=== PATIENT | male | born 1945 | race Caucasian/White ===

== ENCOUNTER → 2021-04-16 12:01 | Outpatient (CLI) | payer MEDICARE, OTHER, SELFPAY ==
[2021-04-16 12:39] LABS: International Normalized Ratio 1.1; Prothrombin Time (Protime)PT. 13.1 SECONDS (11.7-14.9)
== END ==
PROVIDERS: PCP Internal Medicine; Referring Provider Internal Medicine Pulmonary Disease; Visit Provider Internal Medicine Pulmonary Disease
DX: I24.8 Other forms of acute ischemic heart disease (principal); R91.1 Solitary pulmonary nodule
CPT/HCPCS: 85610

== ENCOUNTER → 2022-08-13 | Outpatient (CLI) | payer MEDICARE, SELFPAY ==
--- NOTE | 2022-08-13 13:50 | ECHOD_ITS ---
Reason For Study: S/P CABG Procedure This was a 2D Doppler, Color Flow transthoracic echocardiogram. Exam performed in department. Left Ventricle Normal LV size. Left ventricular systolic function is normal. The estimated ejection fraction is 55 %. Stage 1 diastolic dysfunction. No regional wall motion abnormalities noted. Right Ventricle Normal RV size. Normal systolic function. Atria Normal left atrium. Normal right atrium. Mitral Valve There is mild to moderate mitral annular calcification. Tricuspid Valve Normal tricuspid valve. Mild tricuspid valve insufficiency. Pulmonary artery systolic pressure is 34 mmHg. Aortic Valve Normal aortic valve. Pulmonic Valve Normal pulmonic valve. Great Vessels Normal aortic root. The pulmonary artery is normal size. Normal inferior vena cava. Pericardium/Pleural No pericardial effusion. MMode/2D Measurements & Calculations LVIDd: 4.8 cm IVSd: 1.2 cm LAV(MOD-sp4): 44.6 ml LVIDs: 4.0 cm LVPWd: 1.1 cm FS: 16.5 % LVAd ap4: 29.2 cm2 LVAd ap2: 25.8 cm2 SV(MOD-sp4): 46.6 ml LVLd ap4: 7.5 cm LVLd ap2: 8.3 cm EDV(MOD-sp4): 95.3 ml EDV(MOD-sp2): 71.7 ml EDV(sp4-el): 96.6 ml EDV(sp2-el): 68.0 ml LVAs ap4: 19.1 cm2 LVAs ap2: 17.3 cm2 LVLs ap4: 6.5 cm LVLs ap2: 7.3 cm ESV(MOD-sp4): 48.7 ml ESV(MOD-sp2): 38.5 ml ESV(sp4-el): 47.6 ml ESV(sp2-el): 34.8 ml EF(MOD-sp4): 48.9 % EF(MOD-sp2): 46.3 % EF(sp4-el): 50.7 % SV(MOD-sp2): 33.2 ml SV(sp4-el): 48.9 ml LA A4 area: 18.5 cm2 LA dimension(2D): 4.3 cm RA A4 area: 20.9 cm2 Time Measurements MV dec time: 0.31 sec Doppler Measurements & Calculations MV E max frankie: 32.9 cm/sec Lat Peak E' Frankie: 9.0 cm/sec Med Peak E' Frankie: 8.9 cm/sec MV A max frankie: 67.9 cm/sec E/E' lat: 3.7 E/E' med: 3.7 MV E/A: 0.48 MV V2 max: 86.9 cm/sec Ao V2 max: 127.9 cm/sec MV max P.0 mmHg MV dec slope: 153.7 cm/sec2 Ao max P.6 mmHg MV V2 mean: 49.0 cm/sec MV mean P.1 mmHg MV V2 VTI: 29.8 cm LV V1 max: 74.6 cm/sec TR max frankie: 271.8 cm/sec LV V1 max P.2 mmHg TR max P.5 mmHg ECHO/Echo Complete Interpretation Summary Normal LV size. Left ventricular systolic function is normal. The estimated ejection fraction is 55 %. Stage 1 diastolic dysfunction. Pulmonary artery systolic pressure is 34 mmHg. Ordering Physician: Familia Singh Referring Physician: Dereck Garrison MD Performed By: Sharon Lea RCS
== END | disposition home or self-care (01) ==
PROVIDERS: PCP Family Medicine; Visit Provider Internal Medicine Cardiovascular Disease
DX: I25.5 Ischemic cardiomyopathy (principal); Z95.1 Presence of aortocoronary bypass graft
CPT/HCPCS: 93306

== ENCOUNTER → 2023-02-05 | Outpatient (CLI) | payer OTHER, SELFPAY ==
--- NOTE | 2023-02-05 12:34 | ECHOD_ITS ---
Reason For Study: SOB Procedure This was a 2D Doppler, Color Flow transthoracic echocardiogram. Exam performed in department. Left Ventricle Normal LV size. Left ventricular systolic function is normal. The estimated ejection fraction is 55 %. Stage 1 diastolic dysfunction. No regional wall motion abnormalities noted. Right Ventricle Normal RV size. Normal systolic function. Atria Normal left atrium. Normal right atrium. Mitral Valve Normal mitral valve. Tricuspid Valve Normal tricuspid valve. Mild (1+) tricuspid valve insufficiency. Pulmonary artery systolic pressure is 35 mmHg. Aortic Valve The aortic valve is not well visualized. Pulmonic Valve Normal pulmonic valve. Great Vessels Normal aortic root. The pulmonary artery is normal size. Normal inferior vena cava. Pericardium/Pleural No pericardial effusion. MMode/2D Measurements & Calculations LVIDd: 4.2 cm IVSd: 1.0 cm Ao root diam: 3.2 cm LVIDs: 3.3 cm LVPWd: 1.4 cm RVDd: 3.7 cm FS: 21.0 % LAV(MOD-bp): 48.4 ml LVAd ap4: 26.2 cm2 SV(MOD-sp4): 37.1 ml LAV(MOD-bp) Indexed: 24.8 ml/m2 LVLd ap4: 7.2 cm LAV(MOD-sp2): 51.6 ml EDV(MOD-sp4): 78.7 ml LAV(MOD-sp4): 38.2 ml EDV(sp4-el): 81.1 ml LVAs ap4: 17.8 cm2 LVLs ap4: 6.7 cm ESV(MOD-sp4): 41.5 ml ESV(sp4-el): 40.1 ml EF(MOD-sp4): 47.2 % EF(sp4-el): 50.5 % SV(sp4-el): 40.9 ml LA A4 area: 14.9 cm2 LA dimension(2D): 3.7 cm RA A4 area: 18.9 cm2 TAPSE: 2.5 cm Time Measurements MV dec time: 0.42 sec Doppler Measurements & Calculations MV E max frankie: 55.6 cm/sec Lat Peak E' Frankie: 10.3 cm/sec Med Peak E' Frankie: 6.1 cm/sec MV A max frankie: 80.9 cm/sec E/E' lat: 5.4 E/E' med: 9.1 MV E/A: 0.69 MV V2 max: 99.4 cm/sec Ao V2 max: 113.9 cm/sec MV max P.0 mmHg MV dec slope: 150.1 cm/sec2 Ao max P.2 mmHg MV V2 mean: 55.3 cm/sec Ao V2 mean: 78.6 cm/sec MV mean P.4 mmHg Ao mean P.8 mmHg MV V2 VTI: 37.4 cm Ao V2 VTI: 29.8 cm AV (velocity ratio): 0.79 LV V1 max: 94.7 cm/sec TR max frankie: 283.1 cm/sec LV V1 max P.6 mmHg TR max P.1 mmHg LV V1 mean P.9 mmHg LV V1 mean: 64.7 cm/sec LV V1 VTI: 23.4 cm ECHO/Echo Complete Interpretation Summary Normal LV size. Left ventricular systolic function is normal. The estimated ejection fraction is 55 %. Stage 1 diastolic dysfunction. Pulmonary artery systolic pressure is 35 mmHg. Ordering Physician: Zofia Thompson Referring Physician: Zofia Thompson Performed By: Sharon Lea RCS
== END | disposition home or self-care (01) ==
PROVIDERS: PCP Family Medicine; Referring Provider Internal Medicine; Visit Provider Internal Medicine
DX: R06.02 Shortness of breath (principal)
CPT/HCPCS: 93306

== ENCOUNTER → 2023-09-04 | Outpatient (CLI) | payer MEDICARE, SELFPAY ==
[2023-09-04 12:34] LABS: Erythrocyte Sedimentation Rate 13 mm/hr (0-20)
[2023-09-04 12:37] LABS: Absolute Lymphocyte Count 0.81 X10^3/uL (0.83-4.51); Absolute Neutrophil Count 6.6 X10^3/uL (2.0-7.7); Basophil# 0.07 X10^3/uL; Basophil% 0.8 % (0-1); Eosinophil# 0.24 X10^3/uL; Eosinophils% 2.9 % (0-5); Hematocrit 42.1 % (40-54); Hemoglobin 13.2 g/dL (13.0-16.5); Lymphocyte # 0.81 X10^3/ul (0.83-4.51); Lymphocyte % 9.6 % (19-41); Mean Corp Hgb Conc 31.4 g/dL (32-36); Mean Corpuscular Hgb 28.8 pg (27.0-32.0); Mean Corpuscular Volume 91.7 fL (80-94); Mean Platelet Vol. 9.1 fl (6.2-12.0); Monocyte% 7.1 % (0-10); NRBC Flagged by Analyzer 0 % (0-5); Neutrophil % 78.4 % (47-70); Platelet Count 339 K/mm3 (150-450); RBC Distribution Width CV 14.9 % (11.6-14.6); RBC Distribution Width SD 50.5 fl (35.1-43.9); Red Blood Count 4.59 M/mm3 (4.6-6.2); White Blood Count 8.4 K/mm3 (4.4-11.0)
[2023-09-04 12:47] LABS: ALB/GLOB Ratio 0.8 RATIO (0.9-2.4); AST(SGOT) 9 U/L (15-37); Alanine Aminotransfer ALT/SGPT 17 U/L (16-61); Albumin, Serum 3.5 g/dL (3.2-5.0); Alkaline Phosphatase 82 U/L (45-117); Anion Gap 6 (5-15); BUN 16 mg/dL (7-18); BUN/Creat Ratio 10.9 RATIO (10-20); Calcium,Total 9.4 mg/dL (8.5-10.1); Chloride 102 mmol/L (98-107); Creatinine, Serum 1.47 mg/dL (0.70-1.30); EST Glomerular Filtration Rate 50 mL/min (>60); Est Glom Filt Rate - Afr Amer 60 mL/min (>60); Globulin 4.4 g/dL (2.2-4.2); Glucose 95 mg/dL (74-106); Potassium 4.6 mmol/L (3.5-5.1); Protein, Total 7.9 g/dL (6.4-8.2); Rheumatoid Factor < 10.0 IU/mL (<15); Sodium Level 137 mmol/L (136-145)
[2023-09-04 14:31] LABS: Hepatitis B Surface Antibody Non-Reactive; Hepatitis C Antibody Non-Reactive (Nonreactive)
[2023-09-05 15:08] LABS: CCP IgG Antibodies 1 units (0-19)
[2023-09-07 15:08] LABS: ANTINUCLEAR ANTIBODIES DIRECT Positive (Negative)
== END | disposition home or self-care (01) ==
PROVIDERS: PCP Family Medicine; Referring Provider Internal Medicine Rheumatology; Visit Provider Internal Medicine Rheumatology
DX: M06.4 Inflammatory polyarthropathy (principal); M19.041 Primary osteoarthritis, right hand
CPT/HCPCS: 36415; 80053; 85025; 85652; 86038; 86140; 86200; 86431; 86706; 86803

== ENCOUNTER → 2023-12-21 | Outpatient (CLI) | payer MEDICARE, SELFPAY ==
[2023-12-21 17:31] LABS: Absolute Lymphocyte Count 0.83 X10^3/uL (0.83-4.51); Absolute Neutrophil Count 5.1 X10^3/uL (2.0-7.7); Basophil# 0.07 X10^3/uL; Eosinophils% 4.4 % (0-5); Hematocrit 39.9 % (40-54); Hemoglobin 12.5 g/dL (13.0-16.5); Lymphocyte # 0.83 X10^3/ul (0.83-4.51); Lymphocyte % 12.2 % (19-41); Mean Corp Hgb Conc 31.3 g/dL (32-36); Mean Corpuscular Hgb 28.5 pg (27.0-32.0); Mean Corpuscular Volume 90.9 fL (80-94); Mean Platelet Vol. 8.9 fl (6.2-12.0); Monocyte# 0.46 X10^3/uL; Monocyte% 6.8 % (0-10); NRBC Flagged by Analyzer 0 % (0-5); Neutrophil # 5.12 X10^3/uL (2.7-7.7); Neutrophil % 75.3 % (47-70); Platelet Count 284 K/mm3 (150-450); RBC Distribution Width CV 14.4 % (11.6-14.6); Red Blood Count 4.39 M/mm3 (4.6-6.2); White Blood Count 6.8 K/mm3 (4.4-11.0)
[2023-12-21 18:15] LABS: ALB/GLOB Ratio 0.9 RATIO (0.9-2.4); AST(SGOT) 11 U/L (15-37); Alanine Aminotransfer ALT/SGPT 13 U/L (16-61); Albumin, Serum 3.6 g/dL (3.2-5.0); Alkaline Phosphatase 81 U/L (45-117); Anion Gap 7 (5-15); BUN 18 mg/dL (7-18); BUN/Creat Ratio 12.7 RATIO (10-20); Calcium,Total 9.2 mg/dL (8.5-10.1); Chloride 104 mmol/L (98-107); Creatinine, Serum 1.42 mg/dL (0.70-1.30); EST Glomerular Filtration Rate 52 mL/min (>60); Est Glom Filt Rate - Afr Amer 62 mL/min (>60); Globulin 4.1 g/dL (2.2-4.2); Glucose 97 mg/dL (74-106); Potassium 4.1 mmol/L (3.5-5.1); Protein, Total 7.7 g/dL (6.4-8.2); Sodium Level 136 mmol/L (136-145)
== END | disposition home or self-care (01) ==
LOC: MTLAB 14:08
PROVIDERS: PCP Family Medicine; Referring Provider Internal Medicine Rheumatology; Visit Provider Internal Medicine Rheumatology
DX: M06.4 Inflammatory polyarthropathy (principal); Z79.899 Other long term (current) drug therapy; M19.041 Primary osteoarthritis, right hand
CPT/HCPCS: 36415; 80053; 85025

== ENCOUNTER → 2024-03-08 | Outpatient (CLI) | payer MEDICARE, SELFPAY | END | disposition home or self-care (01) | LOC: MTLAB 11:01 | PROVIDERS: PCP Family Medicine; Referring Provider Internal Medicine Rheumatology; Visit Provider Internal Medicine Rheumatology | DX: M06.4 Inflammatory polyarthropathy (principal); Z79.899 Other long term (current) drug therapy; M19.041 Primary osteoarthritis, right hand | CPT/HCPCS: 36415; 80053 ==

== ENCOUNTER → 2024-03-16 | Outpatient (CLI) | payer MEDICARE, SELFPAY ==
[2024-03-16 12:16] LABS: Absolute Lymphocyte Count 0.52 X10^3/uL (0.83-4.51); Absolute Neutrophil Count 5.5 X10^3/uL (2.0-7.7); Basophil# 0.07 X10^3/uL; Eosinophil# 0.42 X10^3/uL; Hematocrit 38.4 % (40-54); Hemoglobin 11.9 g/dL (13.0-16.5); Lymphocyte # 0.52 X10^3/ul (0.83-4.51); Lymphocyte % 7.4 % (19-41); Mean Corpuscular Hgb 28.3 pg (27.0-32.0); Mean Corpuscular Volume 91.2 fL (80-94); Mean Platelet Vol. 9.5 fl (6.2-12.0); Monocyte# 0.48 X10^3/uL; Monocyte% 6.9 % (0-10); NRBC Flagged by Analyzer 0 % (0-5); Neutrophil # 5.47 X10^3/uL (2.7-7.7); Neutrophil % 78.4 % (47-70); POSITIVE DIFFERENTIAL YES; Platelet Count 258 K/mm3 (150-450); RBC Distribution Width CV 14.6 % (11.6-14.6); Red Blood Count 4.21 M/mm3 (4.6-6.2)
[2024-03-16 12:54] LABS: ALB/GLOB Ratio 0.8 RATIO (0.9-2.4); AST(SGOT) 11 U/L (15-37); Alanine Aminotransfer ALT/SGPT 14 U/L (16-61); Albumin, Serum 3.3 g/dL (3.2-5.0); Alkaline Phosphatase 84 U/L (45-117); Anion Gap 6 (5-15); BUN 19 mg/dL (7-18); BUN/Creat Ratio 13.9 RATIO (10-20); Calcium,Total 9.3 mg/dL (8.5-10.1); Chloride 106 mmol/L (98-107); Creatinine, Serum 1.37 mg/dL (0.70-1.30); EST Glomerular Filtration Rate 54 mL/min (>60); Est Glom Filt Rate - Afr Amer 65 mL/min (>60); Glucose 94 mg/dL (74-106); Potassium 4.6 mmol/L (3.5-5.1); Protein, Total 7.3 g/dL (6.4-8.2); Sodium Level 137 mmol/L (136-145)
== END | disposition home or self-care (01) ==
LOC: MTLAB 10:05
PROVIDERS: PCP Family Medicine; Referring Provider Internal Medicine Rheumatology; Visit Provider Internal Medicine Rheumatology
DX: M06.4 Inflammatory polyarthropathy (principal); Z79.899 Other long term (current) drug therapy; M19.041 Primary osteoarthritis, right hand
CPT/HCPCS: 36415; 80053; 85025

== ENCOUNTER 2024-04-02 01:26 | Observation (INO) | payer MEDICARE, SELFPAY ==
--- NOTE | 2024-04-02 01:27 | EKG12_ITS ---
Test Reason : AM EKG Blood Pressure : / mmHG Vent. Rate : 062 BPM Atrial Rate : 062 BPM P-R Int : 174 ms QRS Dur : 102 ms QT Int : 450 ms P-R-T Axes : 004 024 048 degrees QTc Int : 456 ms Normal sinus rhythm Low voltage QRS Borderline ECG When compared with ECG of 26-MAR-2012 15:46, Aberrant conduction is no longer Present Confirmed by Chris Schneider ([id number]), publishing editor PATRICK RICHARDSON ([id number]) on 04/04/2024 1:27:48 PM Referred By: GURVINDER Confirmed By:Chris Schneider
--- NOTE | 2024-04-02 04:14 | HP.PCM.HOS_ITS ---
HPI - General General Date of Admission: 04/02/24 Date of Service: 04/02/24 Chief Complaint: Chest pain. HPI Narrative The patient is a 78 y/o M w/ PMHx: Chronic COPD, HTN, HLD, CAD s/p PCI and CABG, Ischemic Cardiomyopathy, Hx RUL long cancer status post lobectomy, MOHAN, CKD stage III unclear subtype per GFR trending, Former tobacco use, Chronic anemia, Inflammatory polyarthropathy, Hx significant diverticular disease status post partial colectomy with transient diverting ostomy who presents to the [facility] as a direct admission from outside facility [facility] ED on 04/02/24 with history of onset of chest discomfort bilaterally with some reproducibility with palpation especially on the right side which he notes is more chronic status post previous thoracotomy as well as some increased discomfort with deep inspiratory effort however it was ongoing and he was unable to get comfortable prompting eventual outside facility ED evaluation. Patient denies any increase above baseline dyspnea, diaphoresis, nausea or emesis with this onset. Workup at the outside ED included VS: BP 137/66, 97% on RA, RR 13, HR 60, T 98.3, EKG w/ SR without acute evidence of ischemia, CTPA with no evidence of pulmonary embolism, dissection or aneurysm, area of small loculated fluid in the right lower thorax similar prior status post thoracotomy with right upper lobe lobectomy, high-sensitivity troponin 6 with repeat delta 4.8, D-dimer 847, CMP with sodium 138, potassium 4.4, BUN/creatinine 24/1.53, GFR 44, glucose 96, hepatic profile unremarkable, CBC with WBC 6.8, hemoglobin 11.6, MCV 89, platelet 248 without marked shift. In the ED patient was ministered Toradol, Decadron, tramadol for treatment of musculoskeletal pain in addition to aspirin 162 mg p.o. x 1. The ED physician did reach out to cardiology Dr. Bonilla prior to discussions with hospitalist physician and cardiology accepted the patient for transfer. Upon arrival at [facility] he notes his discomfort is significantly improved and are completely resolved since the ED medications administered outside at [facility]. [facility] Medical History Allergic rhinitis Anxiety and depression History of diverticulitis CKD (chronic kidney disease), stage III Chronic anemia Former tobacco use Inflammatory polyarthropathy GERD (gastroesophageal reflux disease) COPD (chronic obstructive pulmonary disease) Malignant neoplasm of right upper lobe of lung (08/2020) Ischemic cardiomyopathy Obesity Obstructive sleep apnea Atherosclerotic heart disease of [place] coronary artery without angina pectoris Essential (primary) hypertension HLD (hyperlipidemia) Home Medications ?Medication ?Instructions ?Recorded ?Last Taken ?Type aspirin 81 mg tablet,delayed 81 mg PO QDAY 01/08/18 Unknown History release (Adult Low Dose Aspirin) tamsulosin 0.4 mg capsule 0.4 mg PO QDAY 01/08/18 Unknown History rosuvastatin 10 mg tablet 5 mg PO DAILY 08/09/19 Unknown History cholecalciferol (vitamin D3) 50 50 mcg PO DAILY 08/08/21 Unknown History mcg (2,000 unit) capsule sertraline 25 mg tablet 25 mg PO DAILY 08/08/21 Unknown History glucosamine sulfate 1,000 mg 1,000 mg PO DAILY 08/05/22 Unknown History capsule loratadine 10 mg tablet 10 mg PO DAILY 08/05/22 Unknown History turmeric root extract 500 mg tablet 500 mg PO DAILY 08/05/22 Unknown History albuterol sulfate 90 mcg/actuation 1 puff inhalation ONCE PRN 08/05/23 Unknown History aerosol inhaler cyanocobalamin (vitamin B-12) 1,000 mcg PO DAILY 08/05/23 Unknown History 1,000 mcg tablet furosemide 20 mg tablet 20 mg PO DAILY 08/05/23 Unknown History lisinopril 10 mg tablet 10 mg PO DAILY 08/05/23 Unknown History omeprazole 20 mg capsule,delayed 20 mg PO DAILY 08/05/23 Unknown History release tiotropium 2.5 mcg-olodaterol 2.5 2 puff inhalation DAILY 08/05/23 Unknown History mcg/actuation mist for inhalation (Stiolto Respimat) hydroxychloroquine 200 mg tablet 200 mg PO BID 04/02/24 Unknown History Allergy/AdvReac Type Severity Reaction Status Date / Time No Known Allergies Allergy Verified 08/05/23 10:24 Family History Mother Hypertension Father Heart disease Mother Hypertension Surgical History History of carpal tunnel release History of thoracotomy (09/2020) History of colectomy History of coronary artery stent placement (2002) History of left heart catheterization (12/2015) H/O coronary artery bypass surgery (12/21/06) Colostomy in place Social History household members: spouse Smoking Status: Former smoker how long ago did patient quit smokin alcohol intake: never substance use type: does not use caffeine: Yes Type: coffee Number of servings: 3 ROS ROS Narrative Admission Review of Systems: CONSTITUTIONAL: No weight loss, fever, chills, + weakness or fatigue. HEENT: Eyes: No visual loss, blurred vision, double vision or yellow sclerae. Ears, Nose, Throat: No hearing loss, sneezing, congestion, runny nose or sore throat. SKIN: No rash or itching, lesions, wounds. CARDIOVASCULAR: + Chest pain, component of reproducibility. No palpitations, edema, orthopnea, syncopal events. RESPIRATORY: + Unchanged chronic dyspnea worse with exertion/increased activity. No marked cough or sputum, wheezing, hemoptysis. GASTROINTESTINAL: No anorexia, nausea, vomiting or diarrhea, abdominal pain, melena, BRBPR. GENITOURINARY: + Chronic urinary frequency with BPH without obstructive process. No dysuria, urgency or retention. NEUROLOGICAL: No headache, dizziness, syncope, paralysis, ataxia, numbness or tingling in the extremities, focal weakness, change in bowel or bladder control, seizure. MUSCULOSKELETAL: + muscle, back pain, joint pain or stiffness. HEMATOLOGIC: + Chronic anemia, easy bleeding/bruising. LYMPHATICS: No enlarged nodes. No history of splenectomy. PSYCHIATRIC: + History of anxiety and depression. ENDOCRINOLOGIC: No reports of sweating, cold or heat intolerance. No polyuria or polydipsia. ALLERGIES: + History of allergic rhinitis. Physical Exam Narrative Physical Examination: General: Awake, alert, oriented x 3 and cooperative, seated upright in the ED bed, mildly fatigued, notes feeling well and chest discomfort is completely resolved. Skin: Normal color, normal turgor, no icterus, no cyanosis except occasional stage ecchymoses. HEENT: AT/NC, EOMI, PERRLA, MMM, no carotid bruits or JVD noted. Lungs: Mildly diminished, more prominent posteriorly especially right upper status post lobectomy, appropriate effort, no rales, ronchi or wheezing. Heart: Regular rate and rhythm; no gallop, rub audible, no reproducible pain with palpation of the chest but he notes it is completely resolved following ED outpatient steroids, tramadol and IV Toradol. Abdomen: Soft, NTTP, ND, mildly hyperactive BS, no appreciated HSM. Extremities: No cyanosis, no clubbing, very mild ankle not markedly pitting edema present. Neurological: Patient awake, alert, oriented as noted, cognitive function intact; pupils equally reactive to light and accommodation, cranial nerves grossly normal, moving all 4 extremities, no focal deficits, strength preserved. Psychiatric: Affect appears fatigued otherwise normal, no acute evidence of depressive or anxiety feelings but does have underlying history. Assessment & Plan Assessment/Plan (1) Chest pain: PLAN: Plan The patient is a 78 y/o M w/ PMHx: Chronic COPD, HTN, HLD, CAD s/p PCI and CABG, Ischemic Cardiomyopathy, Hx RUL long cancer status post lobectomy, MOHAN, CKD stage III unclear subtype per GFR trending, Former tobacco use, Chronic anemia, Inflammatory polyarthropathy, Hx significant diverticular disease status post pa rtial colectomy with transient diverting ostomy who presents to the [facility] as a direct admission from outside facility [facility] ED on 04/02/24 with history of onset of chest discomfort bilaterally with some reproducibility with palpation especially on the right side which he notes is more chronic status post previous thoracotomy as well as some increased discomfort with deep inspiratory effort however it was ongoing and he was unable to get comfortable prompting eventual outside facility ED evaluation. #1. Chest Pain with underlying CAD s/p prior PCI although presentation suspicious for underlying musculoskeletal etiology: EKG in ED at outside facility with sinus rhythm with no acute evidence of ischemia reported, CTPA with no acute findings aside from chronic small loculated fluid section in the right lower thorax status post previous thoracotomy and lobectomy, initial trop 6 with repeat delta 4.8. Will admit to PCU, place on a monitored bed to assure no acute myocardial infarction with serial cardiac enzymes and EKGs. If repeat serial cardiac enzymes remain unremarkable will pursue AM cardiac stress testing. Magnesium level requested. FLP in AM. ASA, NG, morphine. #2. CAD with ischemic cardiomyopathy: Status post PCI CONRAD proximal RCA 2002 as well as CABG [place] to LAD, SVG to ramus intermedius, SVG to diagonal vessel 2006, previously EF 20 1640% and most recently prior to this 08/13/22 EF 55%, will continue aspirin, statin, lisinopril, not on beta-fabiola therapy but previously had been metoprolol however this was discontinued per most recent cardiology note 08/05/23. The reports this was discontinued secondary to hypotension. #3. 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 #4. Chronic normocytic anemia: ED hemoglobin from outside facility 11.6, MCV 89, previous baseline more recently 03/16/24 hemoglobin 11.9 and prior to this 12/21/23 hemoglobin 12.5, continue to closely trend. #5. Chronic Kidney Disease Stage III, unclear subtype per GFR trending: Outside ED BUN/Cr 44/1.53, GFR 44, baseline renal function 1.3-1.4, repeat BMP in AM. #6. Former tobacco use: Smokes approximately 30 years quitting in 1995, encourage continued tobacco cessation. #7. Hypertension: Continue home regimen including lisinopril, Lasix with hold parameters, PRN hydralazine. #8. Allergic rhinitis: We will continue patient home loratadine regimen. #9. BPH without obstruction: We will continue patient on Flomax regimen. #10. 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 #11. Chronic COPD: Will temporally hold home inhalers and transition the interim to ATC budesonide therapy, PRN albuterol, HOB, IS parameters. #12. Anxiety and depression: We will continue patient home sertraline regimen. #13. Inflammatory polyarthropathy: Following with rheumatology Dr. Velázquez, recently started on hydroxychloroquine regimen for ~5 months, will encourage continued outpatient follow-up as previously arranged. #14. GERD: We will continue patient on PPI. #15. MOHAN: Does not use any type of PAP therapy. #16. DVT prophylaxis: Lovenox. #17. CODE status: Patient HCPABRIL is his and his son his secondary and living will is currently in place. Discussed CODE status at length including difference between FULL code, DNR-CCA and DNR-CC status. Following discussions about the differences in these status, requested Full Code status. Advanced Care Planning Face to Face Time: 16 minutes. Charges/Coding Visit Charges Inpatient E&M: 87802 Init Hosp L3 Procedures Hospitalists Procedures: 46905 Advncd Care Plan 30 Min
[2024-04-02 04:36] VITALS: BMI 30.7
[2024-04-02 04:40] VITALS: BP 136/72; PULSE 60; RESP 18; TEMP 36.4; O2SAT 99
[2024-04-02 04:45] LABS: Absolute Lymphocyte Count 0.25 X10^3/uL (0.83-4.51); Absolute Neutrophil Count 4.1 X10^3/uL (2.0-7.7); Basophil# 0.01 X10^3/uL; Basophil% 0.2 % (0-1); Eosinophil# 0.02 X10^3/uL; Eosinophils% 0.5 % (0-5); Hemoglobin 11.6 g/dL (13.0-16.5); Lymphocyte # 0.25 X10^3/ul (0.83-4.51); Lymphocyte % 5.6 % (19-41); Mean Corp Hgb Conc 32.2 g/dL (32-36); Mean Corpuscular Hgb 28.9 pg (27.0-32.0); Mean Corpuscular Volume 89.8 fL (80-94); Monocyte# 0.06 X10^3/uL; Monocyte% 1.4 % (0-10); NRBC Flagged by Analyzer 0 % (0-5); Neutrophil # 4.09 X10^3/uL (2.7-7.7); Neutrophil % 92.1 % (47-70); POSITIVE DIFFERENTIAL YES; Platelet Count 232 K/mm3 (150-450); RBC Distribution Width CV 14.6 % (11.6-14.6); RBC Distribution Width SD 47.9 fl (35.1-43.9); Red Blood Count 4.01 M/mm3 (4.6-6.2); White Blood Count 4.4 K/mm3 (4.4-11.0)
--- NOTE | 2024-04-02 05:00 | NURSING ---
emergency documentation in effect since 04/02/24, @[id number]
[2024-04-02 05:06] LABS: ALB/GLOB Ratio 0.8 RATIO (0.9-2.4); AST(SGOT) 11 U/L (15-37); Alanine Aminotransfer ALT/SGPT 13 U/L (16-61); Albumin, Serum 3.3 g/dL (3.2-5.0); Alkaline Phosphatase 75 U/L (45-117); Anion Gap 7 (5-15); BUN 30 mg/dL (7-18); BUN/Creat Ratio 18.2 RATIO (10-20); Calcium,Total 9.2 mg/dL (8.5-10.1); Chloride 104 mmol/L (98-107); Creatinine, Serum 1.65 mg/dL (0.70-1.30); EST Glomerular Filtration Rate 43 mL/min (>60); Est Glom Filt Rate - Afr Amer 52 mL/min (>60); Estimated Creatinine Clearance 40.52 ml/min; Globulin 3.9 g/dL (2.2-4.2); Glucose 126 mg/dL (74-106); Magnesium 2.3 mg/dL (1.6-2.6); Protein, Total 7.2 g/dL (6.4-8.2); Sodium Level 134 mmol/L (136-145)
[2024-04-02 05:07] LABS: Troponin-I HS 5 pg/mL (3.0-78.0)
[2024-04-02 06:30] VITALS: BP 139/72; PULSE 57; RESP 18; TEMP 36.5; O2SAT 100
[2024-04-02] MEDS: Lisinopril 10 MG Tablet PO (06:33)
[2024-04-02] MEDS: Aspirin E.C. 81 MG Tablet PO (06:33)
[2024-04-02 06:57] LABS: Troponin-I HS 6 pg/mL (3.0-78.0)
[2024-04-02 10:51] LABS: Troponin-I HS 8 pg/mL (3.0-78.0)
--- NOTE | 2024-04-02 12:18 | CASEMGMT ---
Met with pt to complete BROWN form. BROWN form explained to pt at this time who voiced understanding and signed form. Original form placed in pt?s chart and copy provided to the pt. Pt states that he lives with his and that he is independent. Pt states that he also has family that lives next door. Pt states that he feels safe discharging home once he is medically ready and denies further needs such as HHC, OP Tx, or DME. Kandy Mahoney RN CM
--- NOTE | 2024-04-02 12:21 | STRESSREP ---
Stress Test Report Date: 04/02/2024 Procedure: Pharmacologic stress nuclear imaging study Indications: Chest pain Consent: Per the patient Procedure: The patient underwent pharmacologic (Regadenoson) evaluation with a peak heart rate of 80 beats per minute (55%predicted maximal heart rate) and a peak blood pressure of 140/70 mmHg. The baseline ECG demonstrated normal sinus rhythm. EKG during lexiscan infusion revealed no significant ischemic changes. EKG post infusion revealed no significant ischemic changes [There were no cardiac dysrhythmias pretest, during pharmacologic infusion, or recovery]. [There was no complaint of chest discomfort during pharmacologic infusion or recovery]. The examination was discontinued secondary to completion of protocol. Impression: 1. Lexiscan stress test test is negative for Lexiscan infusion induced EKG changes of ischemia. 2. Lexiscan stress test test is negative for Lexiscan infusion induced chest pain. 3. Results of the nuclear portion of the test is as below Myocardial perfusion imaging study: Technique: The patient was injected with 12 millicuries of technetium 99m Cardiolite and subsequently rest SPECT Cardiolite nuclear imaging was obtained in the horizontal long, vertical long, and short axis views. The patient underwent pharmacologic [Regadenoson 0.4mg] evaluation. Please see above for details. The patient was injected with 36 millicuries of technetium 99m Cardiolite and subsequently stress SPECT Cardiolite nuclear imaging was obtained in the horizontal long, vertical long, and short axis views. A gated Cardiolite study at peak stress was obtained. Interpretation: Rest and stress SPECT Cardiolite nuclear imaging status post realignment, normalization, and attenuation correction demonstrate no definite evidence of significant ischemia or infarction. There is mild fixed apical defect which is likely apical thinning, a normal variant. Gated images reveal no significant regional wall motion abnormalities. The reported LVEF is 61%. Impression: 1. There is no evidence of significant ischemia or infarction. 2. Estimated ejection fraction is 61%. This note was generated with Librettoation software. It may contain incorrect words, spelling, and punctuation that were not noted in checking the note before signing.
[2024-04-02 12:35] VITALS: BP 139/69; PULSE 64; RESP 16; TEMP 36.4; O2SAT 100
[2024-04-02] MEDS: Loratadine 10 MG Tablet PO (12:40)
[2024-04-02] MEDS: Furosemide 20 MG Tablet PO (12:40)
[2024-04-02] MEDS: Pantoprazole Sodium 20 MG Tablet PO (12:40)
[2024-04-02] MEDS: Tamsulosin HCl 0.4 MG Capsule PO (12:40)
[2024-04-02] MEDS: Hydroxychloroquine 200 MG Tablet PO (12:40)
[2024-04-02] MEDS: Sertraline 50 MG Tablet 25 MG PO (12:40)
--- NOTE | 2024-04-02 14:13 | DS.PCM_ITS ---
Providers Date of Admission: 04/02/24 Date of Discharge: 04/02/24 Primary Care Physician: Dr. Dereck Garrison MD Reason For Visit: CHEST PAIN Diagnosis Discharge Diagnosis (1) Chest pain: Status: Acute Code(s): R07.9 - Chest pain, unspecified Medications at Discharge Home Medications aspirin 81 mg tablet,delayed release (Adult Low Dose Aspirin) 81 mg PO QDAY 01/08/18 tamsulosin 0.4 mg capsule 0.4 mg PO QDAY 01/08/18 rosuvastatin 10 mg tablet 5 mg PO DAILY 08/09/19 cholecalciferol (vitamin D3) 50 mcg (2,000 unit) capsule 50 mcg PO DAILY 08/08/21 sertraline 25 mg tablet 25 mg PO DAILY 08/08/21 glucosamine sulfate 1,000 mg capsule 500 mg PO DAILY 08/05/22 loratadine 10 mg tablet 10 mg PO QHS 08/05/22 turmeric root extract 500 mg tablet 500 mg PO DAILY 08/05/22 albuterol sulfate 90 mcg/actuation aerosol inhaler 1 puff inhalation ONCE PRN shortness of breath or wheezing 08/05/23 cyanocobalamin (vitamin B-12) 1,000 mcg tablet 1,000 mcg PO DAILY 08/05/23 furosemide 20 mg tablet 20 mg PO DAILY 08/05/23 lisinopril 10 mg tablet 10 mg PO DAILY 08/05/23 omeprazole 20 mg capsule,delayed release 20 mg PO DAILY 08/05/23 tiotropium 2.5 mcg-olodaterol 2.5 mcg/actuation mist for inhalation (Stiolto Respimat) 2 puff inhalation DAILY 08/05/23 hydroxychloroquine 200 mg tablet 200 mg PO DAILY 04/02/24 nitroglycerin 0.4 mg sublingual tablet 0.4 mg sublingual Q5M PRN chest pain #30 tabs 04/02/24 Hospital Course Operations None Procedures Stress test Summary of Care Provided Minutes Spent on Discharge: 55 Hospital Course: Patient is a 78-year-old male with an extensive past medical history as outlined who was admitted as a direct transfer from [facility] ED with a complaint of chest discomfort. He has started while he was at a high school football game and the night he went to the outside hospital ED. He went to the ED where EKG showed no acute ST changes. CT of the chest showed no evidence of PE or dissection or aneurysm. There was concern that his pain may be musculoskeletal as it was reproducible. He was transferred to [facility] for evaluation with stress test. His chest pain had significantly improved and virtually resolved by the time he came into the ED. He was admitted and managed for chest pain to rule out ACS. He had a stress test done on 04/02/2024 which was negative for evidence of ischemia. Chest pain did not recur during this admission. He remained stable and was discharged on 04/02/2024. He was discharged with a prescription for sublingual nitroglycerin 0.4 mg as needed for chest pain to see if this would help with his chest pain if it did recur. Patient seen and examined prior to discharge. He felt well and had no complaints. He had an uneventful night. Review of systems otherwise negative. Labs and vitals reviewed. Home medication reviewed and reconciled. Physical Exam Const alert, oriented x3 and no apparent distress General Appearance: cooperative and comfortable Orientation / Consciousness: awake Exam Limitations: no limitations HEENT normocephalic, head/scalp atraumatic, hearing grossly normal bilaterally, moist oral mucous membranes and oropharynx normal Mouth: oral and palatal mucosa normal Eyes PERRL, EOMs intact bilaterally and conjunctivae normal Neck no lymphadenopathy, supple and no JVD Resp normal respiratory effort, no retractions, no use of accessory muscles and clear to auscultation bilaterally Cardio regular rate, regular rhythm, S1 normal heart sound, S2 normal heart sound and no murmurs GI normal to inspection, nondistended, normoactive bowel sounds, soft to palpation, non-tender and non-distended Extremity normal to inspection, full ROM and no clubbing, cyanosis or edema Skin no rashes or lesions noted and no wounds Neuro oriented x3, CN's II-XII intact bilaterally, moves all extremities, no focal motor deficits and no sensory deficits noted Sensorium / Orientation: awake and alert Motor Exam: strength 5/5 throughout Psych affect normal Weight / BMI Weight Weight: 195 lb 15.855 oz Body Mass Index (BMI) 30.7 ABG / Lab / Microbiology Data 04/02/24 04:35 04/02/24 04:35 Laboratory: Laboratory Results - last 24 hr 04/02/24 04:35: WBC 4.4, RBC 4.01 L, Hgb 11.6 L, Hct 36.0 L, MCV 89.8, MCH 28.9, MCHC 32.2, RDW Std Deviation 47.9 H, RDW Coeff of Erich 14.6, Plt Count 232, MPV 9.0, Immature Gran % (Auto) 0.200, Neut % (Auto) 92.1 H, Lymph % (Auto) 5.6 L, [place] % (Auto) 1.4, Eos % (Auto) 0.5, Baso % (Auto) 0.2, Absolute Neuts (auto) 4.1, Absolute Lymphs (auto) 0.25 L, Nucleated RBC % 0, Sodium 134 L, Potassium 5.0, Chloride 104, Carbon Dioxide 23.0, Anion Gap 7, BUN 30 H, Creatinine 1.65 H , Estim Creat Clear Calc 40.52, Est GFR (MDRD) Af Amer 52 L, Est GFR (MDRD) Non- Af 43 L, BUN/Creatinine Ratio 18.2, Glucose 126 H, Calcium 9.2, Magnesium 2.3, Total Bilirubin 0.30, AST 11 L, ALT 13 L, Alkaline Phosphatase 75, Troponin I High Sens 5, Total Protein 7.2, Albumin 3.3, Globulin 3.9, Albumin/Globulin Ratio 0.8 L 04/02/24 06:25: Troponin I High Sens 6 04/02/24 10:29: Troponin I High Sens 8 D/C Instructions Discharge Diet: Low fat / Low cholesterol Discharge Activity: Return to Normal Activity Weight Bearing Status: Weight bearing as tolerated Call your doctor if you observe: Fever of 101 or Higher, Shortness of breath, Dizziness, Swelling in the ankles and Chest pain Meaningful Use Info Meaningful Use Meaningful Use Diagnoses (Choose all that apply): None applicable Ischemic Stroke Statin Dosing Therapy Reference: STATIN DOSE THERAPY REFERENCE: * Patients > 75 years receive moderate or high dose statin therapy. * Patients 75 years or YOUNGER should receive HIGH intensity statin dose unless contraindicated. You will be required to document reason for non-treatment if statin daily dose does not meet guidelines. HIGH DOSE STATIN THERAPY DAILY Atorvastatin > than or = to 40 mg Rosuvastatin > than or = to 20 mg Amlodipine + Atorvastatin > than or = to 2.5/40 mg Ezetimibe + Simvastatin 10/80 mg Simvastatin 80mg Discharge Plan Admission Admit Date/Time: 04/02/24 01:26 Primary Reason for Your Visit: chest pain Attending Provider: Missy Latif Primary Care Provider: Dereck Garrison Consulting Providers: Phyllis Aparicio Instructions Patient Instructions: ED Chest Pain, Noncardiac Discharge Orders/Prescriptions Prescriptions: New nitroglycerin 0.4 mg tablet, sublingual 0.4 mg sublingual Q5M PRN (Reason: chest pain) Qty: 30 1RF Rx Instructions: do not exceed 3 doses per episode Continued tamsulosin 0.4 mg capsule,extended release 24hr 0.4 mg PO QDAY aspirin [Adult Low Dose Aspirin] 81 mg tablet,delayed release (DR/EC) 81 mg PO QDAY rosuvastatin 10 mg tablet 5 mg PO DAILY cholecalciferol (vitamin D3) 50 mcg (2,000 unit) capsule 50 mcg PO DAILY sertraline 25 mg tablet 25 mg PO DAILY glucosamine sulfate 1,000 mg capsule 500 mg PO DAILY Rx Instructions: administer with a meal turmeric root extract 500 mg tablet 500 mg PO DAILY loratadine 10 mg tablet 10 mg PO QHS omeprazole 20 mg capsule,delayed release(DR/EC) 20 mg PO DAILY furosemide 20 mg tablet 20 mg PO DAILY lisinopril 10 mg tablet 10 mg PO DAILY cyanocobalamin (vitamin B-12) 1,000 mcg tablet 1,000 mcg PO DAILY Stiolto Respimat 2.5-2.5 mcg/actuation mist 2 puff inhalation DAILY albuterol sulfate 90 mcg/actuation HFA aerosol inhaler 1 puff inhalation ONCE PRN (Reason: shortness of breath or wheezing) hydroxychloroquine 200 mg tablet 200 mg PO DAILY Referrals / Follow Up: Dereck Garrison MD [Primary Care Provider] - Within 1 Week Disposition Disposition (needs filled in before D/C Order can be placed): Home, Self Care Charges/Coding Visit Charges Inpatient E&M: 25609 Disch Hosp >30min
== END 2024-04-02 14:12 | disposition home or self-care (01) ==
PROVIDERS: Admitting Provider Family Medicine; PCP Family Medicine; Visit Provider Student in an Organized Health Care Education/Training Program
DX: R07.89 Other chest pain (principal); J44.9 Chronic obstructive pulmonary disease, unspecified; N18.30 Chronic kidney disease, stage 3 unspecified; Z87.891 Personal history of nicotine dependence; I25.10 Atherosclerotic heart disease of native coronary artery without angina pectoris; E78.5 Hyperlipidemia, unspecified; I12.9 Hypertensive chronic kidney disease with stage 1 through stage 4 chronic kidney disease, or unspecified chronic kidney disease; I25.5 Ischemic cardiomyopathy; G47.33 Obstructive sleep apnea (adult) (pediatric); Z79.899 Other long term (current) drug therapy; Z79.82 Long term (current) use of aspirin; Z95.5 Presence of coronary angioplasty implant and graft; Z95.1 Presence of aortocoronary bypass graft; Z85.118 Personal history of other malignant neoplasm of bronchus and lung; N40.0 Benign prostatic hyperplasia without lower urinary tract symptoms; D64.9 Anemia, unspecified
CPT/HCPCS: 36415; 78452; 80053; 83735; 84484; 85025; 93005; 93017; 99221; A9500; A4216; G0378; G0379; J2785

== ENCOUNTER → 2024-09-05 | Outpatient (CLI) | payer MEDICARE, SELFPAY ==
[2024-09-05 15:44] LABS: Absolute Lymphocyte Count 0.76 X10^3/uL (0.83-4.51); Absolute Neutrophil Count 5.3 X10^3/uL (2.0-7.7); Basophil# 0.08 X10^3/uL; Basophil% 1.1 % (0-1); Eosinophil# 0.34 X10^3/uL; Eosinophils% 4.8 % (0-5); Hemoglobin 12.4 g/dL (13.0-16.5); Lymphocyte # 0.76 X10^3/ul (0.83-4.51); Lymphocyte % 10.8 % (19-41); Mean Corp Hgb Conc 31.8 g/dL (32-36); Mean Corpuscular Hgb 29.5 pg (27.0-32.0); Mean Corpuscular Volume 92.6 fL (80-94); Mean Platelet Vol. 9.6 fl (6.2-12.0); Monocyte# 0.53 X10^3/uL; Monocyte% 7.5 % (0-10); NRBC Flagged by Analyzer 0 % (0-5); Neutrophil # 5.27 X10^3/uL (2.7-7.7); Neutrophil % 75.2 % (47-70); Platelet Count 257 K/mm3 (150-450); RBC Distribution Width CV 13.6 % (11.6-14.6); RBC Distribution Width SD 46.8 fl (35.1-43.9); Red Blood Count 4.21 M/mm3 (4.6-6.2)
[2024-09-05 19:09] LABS: ALB/GLOB Ratio 0.8 RATIO (0.9-2.4); AST(SGOT) 10 U/L (15-37); Alanine Aminotransfer ALT/SGPT 12 U/L (16-61); Albumin, Serum 3.3 g/dL (3.2-5.0); Alkaline Phosphatase 72 U/L (45-117); Anion Gap 7 (5-15); BUN 19 mg/dL (7-18); BUN/Creat Ratio 14.7 RATIO (10-20); Calcium,Total 9.1 mg/dL (8.5-10.1); Chloride 104 mmol/L (98-107); Creatinine, Serum 1.29 mg/dL (0.70-1.30); EST Glomerular Filtration Rate 57 mL/min (>60); Est Glom Filt Rate - Afr Amer 70 mL/min (>60); Glucose 88 mg/dL (74-106); Potassium 4.7 mmol/L (3.5-5.1); Protein, Total 7.3 g/dL (6.4-8.2); Sodium Level 135 mmol/L (136-145)
== END | disposition home or self-care (01) ==
LOC: MTLAB 11:37
PROVIDERS: PCP Family Medicine; Referring Provider Internal Medicine Rheumatology; Visit Provider Internal Medicine Rheumatology
DX: M06.4 Inflammatory polyarthropathy (principal); Z79.899 Other long term (current) drug therapy; M19.041 Primary osteoarthritis, right hand
CPT/HCPCS: 36415; 80053; 85025

== ENCOUNTER → 2024-12-06 | Outpatient (CLI) | payer MEDICARE, SELFPAY ==
[2024-12-06 12:17] LABS: Absolute Lymphocyte Count 0.52 X10^3/uL (0.83-4.51); Absolute Neutrophil Count 4.2 X10^3/uL (2.0-7.7); Basophil# 0.08 X10^3/uL; Basophil% 1.4 % (0-1); Eosinophils% 8.6 % (0-5); Hematocrit 36.2 % (40-54); Hemoglobin 11.7 g/dL (13.0-16.5); Lymphocyte # 0.52 X10^3/ul (0.83-4.51); Lymphocyte % 8.9 % (19-41); Mean Corp Hgb Conc 32.3 g/dL (32-36); Mean Corpuscular Hgb 30.1 pg (27.0-32.0); Mean Corpuscular Volume 93.1 fL (80-94); Monocyte% 8.6 % (0-10); NRBC Flagged by Analyzer 0 % (0-5); Neutrophil # 4.22 X10^3/uL (2.7-7.7); Neutrophil % 72.2 % (47-70); POSITIVE DIFFERENTIAL YES; Platelet Count 225 K/mm3 (150-450); RBC Distribution Width SD 47.7 fl (35.1-43.9); Red Blood Count 3.89 M/mm3 (4.6-6.2); White Blood Count 5.8 K/mm3 (4.4-11.0)
[2024-12-06 12:49] LABS: ALB/GLOB Ratio 1.3 RATIO (0.9-2.4); AST(SGOT) 12 U/L (<=37); Alanine Aminotransfer ALT/SGPT 7 U/L (<=46); Albumin, Serum 3.8 g/dL (3.4-4.8); Alkaline Phosphatase 71 U/L (40-129); Anion Gap 11 (5-15); BUN 17 mg/dL (4-19); BUN/Creat Ratio 13.4 RATIO (10-20); Carbon Dioxide 22.9 mmol/L (21.0-32.0); Chloride 103 mmol/L (98-108); Creatinine, Serum 1.28 mg/dL (0.70-1.20); EST Glomerular Filtration Rate 58 (>60); Globulin 2.9 g/dL (2.2-4.2); Glucose 90 mg/dL (70-99); Potassium 4.2 mmol/L (3.3-5.1); Protein, Total 6.7 g/dL (5.9-8.4); Sodium Level 137 mmol/L (133-145); Total Bilirubin 0.31 mg/dL (0.00-1.30)
== END | disposition home or self-care (01) ==
LOC: MTLAB 10:13
PROVIDERS: PCP Family Medicine; Referring Provider Internal Medicine Rheumatology; Visit Provider Internal Medicine Rheumatology
DX: M06.4 Inflammatory polyarthropathy (principal); Z79.899 Other long term (current) drug therapy
CPT/HCPCS: 36415; 80053; 85025

== ENCOUNTER → 2025-01-05 | Outpatient (CLI) | payer MEDICARE, SELFPAY ==
[2025-01-05 10:37] LABS: Absolute Lymphocyte Count 0.34 X10^3/uL (0.83-4.51); Absolute Neutrophil Count 4.4 X10^3/uL (2.0-7.7); Basophil# 0.03 X10^3/uL; Basophil% 0.6 % (0-1); Eosinophil# 0.26 X10^3/uL; Eosinophils% 4.9 % (0-5); Hematocrit 32.5 % (40-54); Hemoglobin 10.4 g/dL (13.0-16.5); Lymphocyte # 0.34 X10^3/ul (0.83-4.51); Lymphocyte % 6.4 % (19-41); Mean Corpuscular Hgb 29.5 pg (27.0-32.0); Mean Corpuscular Volume 92.3 fL (80-94); Mean Platelet Vol. 8.9 fl (6.2-12.0); Monocyte# 0.31 X10^3/uL; Monocyte% 5.8 % (0-10); NRBC Flagged by Analyzer 0 % (0-5); Neutrophil # 4.37 X10^3/uL (2.7-7.7); Neutrophil % 81.6 % (47-70); POSITIVE DIFFERENTIAL YES; Platelet Count 256 K/mm3 (150-450); RBC Distribution Width CV 14.7 % (11.6-14.6); RBC Distribution Width SD 49.1 fl (35.1-43.9); Red Blood Count 3.52 M/mm3 (4.6-6.2); White Blood Count 5.4 K/mm3 (4.4-11.0)
[2025-01-05 11:12] LABS: ALB/GLOB Ratio 1.1 RATIO (0.9-2.4); AST(SGOT) 17 U/L (<=37); Alanine Aminotransfer ALT/SGPT 17 U/L (<=46); Albumin, Serum 3.6 g/dL (3.4-4.8); Alkaline Phosphatase 107 U/L (40-129); Anion Gap 13 (5-15); BUN 21 mg/dL (4-19); BUN/Creat Ratio 17.4 RATIO (10-20); Calcium,Total 9.1 mg/dL (7.6-11.0); Carbon Dioxide 19.8 mmol/L (21.0-32.0); Chloride 104 mmol/L (98-108); Creatinine, Serum 1.18 mg/dL (0.70-1.20); EST Glomerular Filtration Rate 64 (>60); Globulin 3.2 g/dL (2.2-4.2); Glucose 95 mg/dL (70-99); Potassium 4.7 mmol/L (3.3-5.1); Protein, Total 6.8 g/dL (5.9-8.4); Sodium Level 136 mmol/L (133-145); Total Bilirubin 0.47 mg/dL (0.00-1.30)
== END | disposition home or self-care (01) ==
LOC: MTLAB 08:35
PROVIDERS: PCP Family Medicine; Referring Provider Internal Medicine Rheumatology; Visit Provider Internal Medicine Rheumatology
DX: M06.4 Inflammatory polyarthropathy (principal); Z79.899 Other long term (current) drug therapy
CPT/HCPCS: 36415; 80053; 85025

== ENCOUNTER → 2025-02-23 | Outpatient (CLI) | payer MEDICARE, SELFPAY ==
[2025-02-23 16:00] LABS: AST(SGOT) 11 U/L (<=37); Alanine Aminotransfer ALT/SGPT 8 U/L (<=46); Albumin, Serum 3.6 g/dL (3.4-4.8); Alkaline Phosphatase 78 U/L (40-129); Anion Gap 14 (5-15); BUN 23 mg/dL (4-19); BUN/Creat Ratio 14.4 RATIO (10-20); Calcium,Total 8.9 mg/dL (7.6-11.0); Carbon Dioxide 20.5 mmol/L (21.0-32.0); Chloride 103 mmol/L (98-108); Globulin 3.2 g/dL (2.2-4.2); Glucose 93 mg/dL (70-99); Potassium 4.8 mmol/L (3.3-5.1)
[2025-02-23 16:11] LABS: Hematocrit 30.7 % (40-54); Hemoglobin 9.6 g/dL (13.0-16.5); Immature Granulocytes Count 0.070 X10^3/uL (0.0-0.0); Mean Corp Hgb Conc 31.3 g/dL (32-36); Mean Corpuscular Volume 95.0 fL (80-94); Mean Platelet Vol. 9.0 fl (6.2-12.0); NRBC Flagged by Analyzer 0 % (0-5); Platelet Count 292 K/mm3 (150-450); RBC Distribution Width CV 16.2 % (11.6-14.6); RBC Distribution Width SD 55.2 fl (35.1-43.9); Red Blood Count 3.23 M/mm3 (4.6-6.2); White Blood Count 6.0 K/mm3 (4.4-11.0)
== END | disposition home or self-care (01) ==
PROVIDERS: PCP Family Medicine; Referring Provider Internal Medicine Rheumatology; Visit Provider Internal Medicine Rheumatology
DX: M06.4 Inflammatory polyarthropathy (principal); Z79.899 Other long term (current) drug therapy; M19.041 Primary osteoarthritis, right hand
CPT/HCPCS: 36415; 80053; 85025

== ENCOUNTER → 2025-03-30 | Outpatient (CLI) | payer MEDICARE, SELFPAY ==
[2025-03-30 17:40] LABS: Hematocrit 34.6 % (40-54); Hemoglobin 10.9 g/dL (13.0-16.5); Immature Granulocytes Count 0.010 X10^3/uL (0.0-0.0); Mean Corp Hgb Conc 31.5 g/dL (32-36); Mean Corpuscular Volume 95.3 fL (80-94); Mean Platelet Vol. 9.2 fl (6.2-12.0); NRBC Flagged by Analyzer 0 % (0-5); Platelet Count 272 K/mm3 (150-450); RBC Distribution Width CV 15.7 % (11.6-14.6); RBC Distribution Width SD 55.3 fl (35.1-43.9); Red Blood Count 3.63 M/mm3 (4.6-6.2); White Blood Count 5.6 K/mm3 (4.4-11.0)
[2025-03-30 18:29] LABS: AST(SGOT) 13 U/L (<=37); Alanine Aminotransfer ALT/SGPT 7 U/L (<=46); Albumin, Serum 4.0 g/dL (3.4-4.8); Alkaline Phosphatase 67 U/L (40-129); Anion Gap 12 (5-15); BUN 15 mg/dL (4-19); BUN/Creat Ratio 12.3 RATIO (10-20); Calcium,Total 9.0 mg/dL (7.6-11.0); Carbon Dioxide 21.2 mmol/L (21.0-32.0); Chloride 106 mmol/L (98-108); Globulin 2.9 g/dL (2.2-4.2); Glucose 88 mg/dL (70-99); Potassium 4.6 mmol/L (3.3-5.1)
== END | disposition home or self-care (01) ==
LOC: MTLAB 15:31
PROVIDERS: PCP Family Medicine; Referring Provider Internal Medicine Rheumatology; Visit Provider Internal Medicine Rheumatology
DX: M06.4 Inflammatory polyarthropathy (principal); Z79.899 Other long term (current) drug therapy
CPT/HCPCS: 36415; 80053; 85025

== ENCOUNTER → 2025-06-16 | Outpatient (CLI) | payer MEDICARE, SELFPAY ==
[2025-06-16 12:15] LABS: Hematocrit 37.9 % (40-54); Hemoglobin 12.2 g/dL (13.0-16.5); Immature Granulocytes Count 0.020 X10^3/uL (0.0-0.0); Mean Corp Hgb Conc 32.2 g/dL (32-36); Mean Corpuscular Volume 94.5 fL (80-94); Mean Platelet Vol. 9.3 fl (6.2-12.0); NRBC Flagged by Analyzer 0 % (0-5); Platelet Count 242 K/mm3 (150-450); RBC Distribution Width CV 13.3 % (11.6-14.6); RBC Distribution Width SD 46.6 fl (35.1-43.9); Red Blood Count 4.01 M/mm3 (4.6-6.2); White Blood Count 7.0 K/mm3 (4.4-11.0)
[2025-06-16 13:08] LABS: AST(SGOT) 15 U/L (<=37); Alanine Aminotransfer ALT/SGPT 12 U/L (<=46); Albumin, Serum 4.0 g/dL (3.4-4.8); Alkaline Phosphatase 68 U/L (40-129); Anion Gap 11 (5-15); BUN 21 mg/dL (4-19); BUN/Creat Ratio 15.3 RATIO (10-20); Calcium,Total 9.0 mg/dL (7.6-11.0); Carbon Dioxide 24.3 mmol/L (21.0-32.0); Chloride 104 mmol/L (98-108); Globulin 2.9 g/dL (2.2-4.2); Glucose 102 mg/dL (70-99); Potassium 4.4 mmol/L (3.3-5.1)
== END | disposition home or self-care (01) ==
LOC: MTLAB 11:29
PROVIDERS: PCP Family Medicine; Referring Provider Internal Medicine Rheumatology; Visit Provider Internal Medicine Rheumatology
DX: M06.4 Inflammatory polyarthropathy (principal); Z79.899 Other long term (current) drug therapy; M19.041 Primary osteoarthritis, right hand
CPT/HCPCS: 36415; 80053; 85025